=== PATIENT | female | born 1990 | race Caucasian/White ===

== ENCOUNTER → 2017-08-25 | Outpatient (CLI) | payer MEDICAID | LOC: HPND 08:05 | PROVIDERS: ATTEND Obstetrics & Gynecology | DX: O35.1XX0 Maternal care for (suspected) chromosomal abnormality in fetus, not applicable or unspecified (principal); O99.332 Smoking (tobacco) complicating pregnancy, second trimester; Z36.3 Encounter for antenatal screening for malformations | CPT/HCPCS: 76811 ==

== ENCOUNTER 2018-01-04 06:11 | Inpatient (IN) ==
--- NOTE | 2018-01-04 07:36 | P.HPOB ---
History of Present Illness Primary Care Physician: UNKNOWN Dr. Ignacio Erazo Chief Complaint: Contractions History of Present Illness: This patient is 27-year-old white female at 40weeks today [facility] records are available. She presents complaining of contractions that are painful began just after midnight. She denies bleeding or rupture membranes. Baby is active, NST is reactive she is sang every 3 minutes with discomfort. Weeks Gestation:: 40 Para: 3 : 4 Review of Systems All other systems reviewed negative except as stated in HPI PMFSH - Surgical History Surgical History: Surgical History (Last Updated 01/04/18 @ 07:36 by Inocente Barrientos MD) H/O tubal ligation - Social History I have reviewed the patient's Social History: Yes - Tobacco History Smoking Status: Never smoker - Alcohol History How Often Do You Have a Drink Containing Alcohol: Never - Substance Use History Substance History: No History of Abuse - Travel History History of Recent Travel: No Recent Travel in the [facility] Within the Last 8 Weeks: No Recent Travel Out of the Country Within the Last 8 Weeks: No Exam Vital signs: Vital Signs 01/04/18 07:00 Temperature 98.5 F Respiratory Rate 20 Narrative: GENERAL: Well-nourished, well-developed patient. SKIN: Warm and dry. HEAD: Normocephalic and atraumatic. EYES: No scleral icterus. No injection or drainage. ENT: No nasal drainage noted. Mucous membranes pink. Airway patent. NECK: Supple, trachea midline. No JVD. CARDIOVASCULAR: Regular rate and rhythm without murmurs, gallops, or rubs. RESPIRATORY: Breath sounds equal bilaterally. No accessory muscle use. BREASTS: Bilateral exam showed no masses , no retractions, no nipple discharge. ABDOMEN/GI: Abdomen soft, non-tender, bowel sounds present, no rebound, no guarding Gravid to [-40] weeks size Fundal Height: [40-] GENITOURINARY: External Genitalia: intact and normal in appearance BUS glands: [-] Cervix: [-post] Dilatation: [6-] Effacement: [80-] Station: [-3] Presentation: [vtx-] Membranes: [intact ] Uterine Contractions: [q 3 min-] FHT's: Category: [1-] Baseline: [-144] Reactive: [R-] Variability: [mod-] Decels: [0-] EXTREMITIES: No cyanosis or edema. BACK: Nontender without obvious deformity. No CVA tenderness. NEUROLOGICAL: Awake and alert. Motor and sensory grossly within normal limits. Five out of 5 muscle strength in all muscle groups. Normal speech. Results - Labs Group B Strep: Negative Caprini VTE Risk Assessment Caprini VTE Risk Assessment: No/Low Risk (score <= 1) Caprini Risk Assessment Model: Point Value = 1 Point Value = 2 Point Value = 3 Point Value = 5 Age 41-60 Minor surgery BMI > 25 kg/m2 Swollen legs Varicose veins or History of unexplained or recurrent spontaneous Oral contraceptives or hormone replacement Sepsis (< 1 month) Serious lung disease, including pneumonia (< 1 month) Abnormal pulmonary function Acute myocardial infarction Congestive heart failure (< 1 month) History of inflammatory bowel disease Medical patient at bed rest Age 61-74 Arthroscopic surgery Major open surgery (> 45 min) Laparoscopic surgery (> 45 min) Malignancy Confined to bed (> 72 hours) Immobilizing plaster cast Central venous access Age >= 75 History of VTE Family history of VTE Factor V Leiden Prothrombin [id number] Lupus anticoagulant Anticardiolipin antibodies Elevated serum homocysteine Heparin-induced thrombocytopenia Other congenital or acquired thrombophilia Stroke (< 1 month) Elective arthroplasty Hip, pelvis, or leg fracture Acute spinal cord injury (< 1 month) Prophylaxis Regimen: Total Risk Factor Score Risk Level Prophylaxis Regimen 0-1 Low Early ambulation 2 Moderate Order ONE of the following: *Sequential Compression Device (SCD) *Heparin 5000 units SQ BID 3-4 Higher Order ONE of the following medications: *Heparin 5000 units SQ TID *Enoxaparin/Lovenox 40 mg SQ daily (WT < 150 kg, CrCl > 30 mL/min) *Enoxaparin/Lovenox 30 mg SQ daily (WT < 150 kg, CrCl > 10-29 mL/min) *Enoxaparin/Lovenox 30 mg SQ BID (WT < 150 kg, CrCl > 30 mL/min) AND/OR *Sequential Compression Device (SCD) 5 or more Highest Order ONE of the following medications: *Heparin 5000 units SQ TID (Preferred with Epidurals) *Enoxaparin/Lovenox 40 mg SQ daily (WT < 150 kg, CrCl > 30 mL/min) *Enoxaparin/Lovenox 30 mg SQ daily (WT < 150 kg, CrCl > 10-29 mL/min) *Enoxaparin/Lovenox 30 mg SQ BID (WT < 150 kg, CrCl > 30 mL/min) AND *Sequential Compression Device (SCD) Assessment and Plan - Diagnosis (1) Uterine contractions during Code(s): O62.2 - Other uterine inertia Status: Acute (2) 40 weeks gestation of Code(s): Z3A.40 - 40 weeks gestation of Status: Acute - Plan This multiparous patient now at 40 weeks presents in labor, cervix 6/80/-3. heart rate tracing is reactive and contractions noted. Plan is admission to the hospital, augment labor as needed, anticipate vaginal delivery
[2018-01-04] MEDS ORDERED: Oxytocin 30 Units/500ml Premix 30 UNITS/500 ML BAG IV.SIG ONE (07:38)
[2018-01-04] MEDS ORDERED: Naloxone Inj 0.4 MG/ML Vial IV.PUSH PRN ×2 (07:38→15:26)
[2018-01-04] MEDS ORDERED: Sod Chloride 0.9% Inj 1,000 ML IV.CONT PRN (07:38)
[2018-01-04] MEDS ORDERED: Sodium Chlor 0.9% Inj 500 ML IV.SIG PRN (07:38)
[2018-01-04] MEDS ORDERED: fentaNYL Citrate Inj 100 MCG/2 ML Ampul IV.PUSH PRN ×2 (07:38)
[2018-01-04] MEDS ORDERED: Citric Acid/Sodium Citrate Liq 30 ML UDC PO SCH (07:45)
[2018-01-04 08:06] LABS: Baso # (Auto) 0.1 th/mm3 (0.0-0.2); Baso % (Auto) 0.5 % (0.0-2.0); Eos # (Auto) 0.2 th/mm3 (0.0-0.4); Eos % (Auto) 1.4 % (0.0-4.0); Hematocrit 32.5 % (35.0-46.0); Hemoglobin 11.9 gm/dL (11.6-15.3); Lymph # (Auto) 2.6 th/mm3 (1.0-4.8); Lymph % (Auto) 17.9 % (9.0-44.0); Mean Corpuscular Hemoglobin 35.8 pg (27.0-34.0); Mean Corpuscular Volume 97.3 fL (80.0-100.0); Mean Platelet Volume 8.3 fL (7.0-11.0); Mono # (Auto) 1.1 th/mm3 (0.0-0.9); Mono % (Auto) 7.4 % (0.0-8.0); Neut # (Auto) 10.6 th/mm3 (1.8-7.7); Neut % (Auto) 72.8 % (16.0-70.0); Platelet Count 226 th/mm3 (150-450); Red Blood Count 3.34 mil/mm3 (4.00-5.30); Red Cell Distribution Width 13.5 % (11.6-17.2); White Blood Count 14.5 th/mm3 (4.0-11.0)
[2018-01-04 08:08] LABS: Mean Corpuscular HGB Conc 36.8 % (32.0-36.0)
[2018-01-04] MEDS ORDERED: fentaNYL 2MCG-Bupiv 0.125% Epi 150 ML EPIDURAL ONE (08:10)
[2018-01-04] MEDS ORDERED: Lidocaaine 1.5%/Epinephrine 1:200,000 PF Inj 5 ML Amp ONE (08:29)
[2018-01-04] MEDS ORDERED: Lidocaine PF 1% Inj 5 ML Vial ONE (08:29)
[2018-01-04 08:54] LABS: Lymphocytes 16 % (9-44); Monocytes 9 % (0-8); Platelet Estimate Normal (Normal); Platelet Morphology Normal (Normal); Promyelocyte 1 % (0-0)
[2018-01-04] MEDS ORDERED: fentaNYL Citrate Inj 100 MCG/2 ML Ampul EPIDURAL ONE (09:12)
[2018-01-04] MEDS ORDERED: fentaNYL 2MCG-Bupiv 0.125% Epi 150 ML EPIDURAL PRN ×2 (09:12→09:37)
[2018-01-04 09:16] LABS: Bilirubin,Urine Negative (Negative); Clarity,Urine Cloudy (Clear); Color,Urine Yellow (Yellw/Straw); Glucose,Urine (UA) Negative (Negative); Leukocyte Esterase,Urine Large (Negative); Nitrite,Urine Negative (Negative)
[2018-01-04 09:49] LABS: Specific Gravity,Urine 1.008 (1.002-1.035)
[2018-01-04 09:50] LABS: Bacteria,Urine Few /hpf
[2018-01-04 10:03] LABS: Amphetamine Urine With Conf Neg (Neg); Benzodiazepine Urine With Conf Neg (Neg)
[2018-01-04] MEDS ORDERED: miSOPROStol 200 MCG Tablet PO ONE (14:22)
--- NOTE | 2018-01-04 14:22 | P.OBDELI ---
Additional Information: Weeks Gestation: 40 weeks 0 days Anesthesia: Epidural Presentation: Vertex, OA Nuchal Cord: None Shoulder Dystocia: None Delayed Cord Clampin seconds Placenta: Intact, three-vessel cord Episiotomy: None Laceration: None Repair: None Estimated Blood Loss: 50 cc Delivery Time: 1410 Delivery Date: 01/04/18 : Female (1 min): 8 (5 min): 8 Supervised by: Dr. Bradford
[2018-01-04] MEDS ORDERED: miSOPROStol 200 MCG Tablet ONE (14:28)
[2018-01-04] MEDS ORDERED: Oxytocin 30 Units/500ml Premix 30 UNITS/500 ML BAG IV.CONT PRN (15:26)
[2018-01-04] MEDS ORDERED: Witch Hazel 50%/Glyderin 12.5% 40 Pad Jar RECTAL PRN (15:26)
[2018-01-04] MEDS ORDERED: Bisacodyl 10 MG Supp RECTAL PRN (15:26)
[2018-01-04] MEDS ORDERED: Benzocaine 20% Top Spray 60 ML Can TOPICAL PRN (15:26)
[2018-01-04] MEDS ORDERED: Measles/Mumps/Rubella Vaccine Inj 0.5 ML Vial SQ ONE (16:00)
[2018-01-04] MEDS ORDERED: Diphtheria/Tetanus/Pertussis Vaccine Inj 0.5 ML Syringe IM ONE (16:00)
--- NOTE | 2018-01-04 19:08 | P.OBGPN ---
Postop day 0. Patient complaining of leg pain. Patient seen complaining of pain in her feet when she walks since the beginning of the . However she is concerned about the possibility of a blood clot. Patient seen and examined vital signs are stable she is able to ambulate without difficulty. On examination no erythema no edema no localized areas of warmth. Negative Homans. There is some tenderness in the plantar fascia as well as the Achilles of the affected area-patient advised to follow-up with podiatry outpatient
[2018-01-04] MEDS ORDERED: Zolpidem Tartrate 5 MG Tablet PO PRN (21:00)
[2018-01-04] MEDS: Acetaminophen 325 MG Tablet PO PRN (22:48)
[2018-01-04] MEDS: Senna/Docusate Sodium 8.6/50 MG Tablet PO SCH (22:51)
[2018-01-05] MEDS: Acetaminophen 325 MG Tablet PO PRN ×4 (02:54→19:47)
--- NOTE | 2018-01-05 08:22 | P.PNOB ---
Subjective Post day: 1 Interval history: day # 1 Afebrile with stable vitals overnight. Decreased lochia. Denies dysuria. No breast pain. Appetite good. No nausea or vomiting. Ambulating well. Denies calf pain or shortness of breath. She did have prior complaints of ankle and groin pain that was short-lived and have since resolved. Otherwise, she is doing well this morning and has no other complaints. Objective Vital Signs/I&O: Vital Signs 01/04/18 08:49 01/04/18 08:58 01/04/18 09:15 Temperature 98.0 F Pulse Rate 71 70 93 H Respiratory Rate 18 18 Blood Pressure 120/69 118/60 118/57 L 01/04/18 09:55 01/04/18 10:55 01/04/18 11:00 Temperature 98.1 F Pulse Rate 65 67 69 Respiratory Rate 18 Blood Pressure 120/59 L 77/26 L 122/53 L 01/04/18 11:10 01/04/18 11:35 01/04/18 12:01 Temperature Pulse Rate 65 69 75 Respiratory Rate Blood Pressure 116/58 L 133/67 124/56 L 01/04/18 12:31 01/04/18 14:37 01/04/18 14:57 Temperature Pulse Rate 99 H 63 59 L Respiratory Rate 18 20 Blood Pressure 106/30 L 112/58 L 121/89 01/04/18 15:02 01/04/18 16:01 Temperature Pulse Rate 60 68 Respiratory Rate Blood Pressure 100/57 L 102/54 L Intake & Output 01/04/18 01/05/18 01/05/18 18:59 06:59 18:59 Intake Total 1999 Balance 1999 Weight 88 kg Intake: IV 1999 LR 1000 mL Inj 1,000 ML @ 125 1000 / 1000 mls/hr IV.CONT .Q8H [facility] Rx#: [id number] LR 1000 mL Inj 1,000 ML @ 3000 1000 / 1000 mls/hr IV.SIG UNSCH PRN Rx#: [id number] Other: Weight On Admission 88 kg Result Diagrams: 01/04/18 07:35 Objective Remarks: General: Alert, well appearing, in no acute distress Skin: Warm and dry HEENT: Atraumatic. Moist mucus membranes Cardiac: Regular rate and rhythm without murmur Pulmonary: No increased work of breathing. Clear to auscultation bilaterally with good air movement. Abdominal: Non-tender. + Bowel sounds. uterus firm and below the umbilicus Extremities: 2+ pedal pulses, no edema, no calf tenderness Medications and IVs: Active Medications Acetaminophen (Tylenol) 650 mg PO Q4H PRN PRN Reason: PAIN SCALE 1 TO 2 Last Admin: 01/05/18 07:35 Dose: 650 mg Al Hydroxide/Mg Hydroxide (Milk Of Magnesia Liq) 30 ml PO Q12H PRN PRN Reason: Mild Constipation Benzocaine (Americaine 20% Top [place]) 1 spray TOPICAL Q4H PRN PRN Reason: For Perineum Discomfort Bisacodyl (Dulcolax Supp) 10 mg RECTAL DAILY PRN PRN Reason: SEVERE CONSITIPATION Citric Acid/Sodium Citrate (Sodium Citrate/Citric Acid Liq) 30 ml PO ACCOUNTS RECEIVABLE PROCESSOR [facility] Stop: 01/08/18 07:44 Ephedrine Sulfate (Ephedrine/Ns Syringe) 10 mg IV.PUSH UNSCH PRN PRN Reason: SEE LABEL COMMENTS Stop: 01/05/18 09:12 Fentanyl Citrate (Fentanyl Inj) 50 mcg IV.PUSH Q1H PRN PRN Reason: Pain Scale 3 - 5 Fentanyl Citrate (Fentanyl Inj) 100 mcg IV.PUSH Q1H PRN PRN Reason: PAIN SCALE 6 TO 10 Lactated Ringer's (Lr 1000 Ml Inj) 1,000 mls @ 3,000 mls/hr IV.SIG UNSCH PRN PRN Reason: compromise or epidural Last Infusion: 01/04/18 08:33 Dose: Infused Lactated Ringer's (Lr 1000 Ml Inj) 1,000 mls @ 125 mls/hr IV.CONT .Q8H [facility] Last Admin: 01/04/18 23:32 Dose: Not Given Sodium Chloride (Ns Inj) 500 mls @ 1,000 mls/hr IV.SIG UNSCH PRN PRN Reason: SEE LABEL COMMENTS Sodium Chloride (Ns Inj) 1,000 mls @ 100 mls/hr IV.CONT .Q10H PRN PRN Reason: SEE LABEL COMMENTS Fentanyl/Bupivacaine/Sodium Chlor (Fentanyl 2 Mcg-Bupiv 0.125% Epi) 150 mls @ 12 mls/hr EPIDURAL PRN PRN PRN Reason: for Labor Pain Oxytocin (Pitocin 30 Units/Ns 500 Ml Premix) 30 units in 500 mls @ 100 mls/hr IV.CONT UNSCH PRN PRN Reason: Heavy bleeding Ibuprofen (Motrin) 800 mg PO Q8H PRN PRN Reason: For Cramping Last Admin: 01/05/18 02:53 Dose: 800 mg Lidocaine HCl (Xylocaine 1% Inj) 0.1 ml I-DERMAL PRN PRN PRN Reason: For IV start Stop: 01/07/18 07:37 Lidocaine HCl (Xylocaine 1% Inj) 10 ml INFILTRATN PRN PRN PRN Reason: For episiotomy repair Stop: 01/06/18 07:37 Mineral Oil (Muri-Lube Oil) 10 ml TOPICAL PRN PRN PRN Reason: PRN perineal massage Miscellaneous Information (Misc Information) 1 each OTHER UNSCH PRN PRN Reason: SEE LABEL COMMENTS Stop: 01/05/18 09:12 Naloxone HCl (Narcan Inj) 0.1 mg IV.PUSH Q2M PRN PRN Reason: for opiate reversal Naloxone HCl (Narcan Inj) 0.1 mg IV.PUSH Q2M PRN PRN Reason: for opiate reversal Ondansetron HCl (Zofran Odt) 4 mg PO Q6H PRN PRN Reason: NAUSEA OR VOMITING Senna/Docusate Sodium (Gauri-Colace) 1 tab PO BID [facility] Last Admin: 01/04/18 22:51 Dose: Not Given Sennosides (Senokot) 17.2 mg PO Q12H PRN PRN Reason: Moderate Constipation Sodium Chloride (Ns Flush) 2 ml IV.FLUSH BID [facility] Last Admin: 01/04/18 23:31 Dose: Not Given Sodium Chloride (Ns Flush) 2 ml IV.FLUSH PRN PRN PRN Reason: FLUSH AFTER USING IV ACCESS Witch Enedina/Glycerin (Tucks Pads) 1 applicatio RECTAL QID PRN PRN Reason: HEMORRHOIDS Zolpidem Tartrate (Ambien) 5 mg PO HS PRN PRN Reason: SLEEP Assessment and Plan - Diagnosis (1) (normal spontaneous vaginal delivery) Code(s): O80 - Encounter for full-term uncomplicated delivery Status: Acute - Plan 27 year old female who is PPD# 1 s/p vaginal delivery -Continue routine care. -Motrin /APAP as needed for pain. -Encouraged OOB. Advised pelvic rest for 6 wks. - control: Plans on repeat tubal. Was advised on other nonsurgical options. -Anticipate DC home later today or tomorrow Care was discussed with: Dr. Bradford
[2018-01-05] MEDS: Senna/Docusate Sodium 8.6/50 MG Tablet PO SCH ×2 (15:31→22:17)
[2018-01-06] MEDS: Acetaminophen 325 MG Tablet PO PRN ×2 (02:05→11:52)
--- NOTE | 2018-01-06 07:29 | P.PNOB ---
Subjective Post day: 2 Interval history: Patient's pain is well-controlled. Patient reports eating and drinking without any nausea or vomiting. Patient reports minimal bleeding. Patient has passed gas but no bowel movements. Patient is walking without lower extremity pain or shortness of breath. Objective Vital Signs/I&O: Vital Signs 01/05/18 08:00 01/05/18 20:00 Temperature 97.6 F 98.0 F Pulse Rate 50 L 55 L Respiratory Rate 20 18 Blood Pressure 112/70 115/69 Result Diagrams: 01/04/18 07:35 Objective Remarks: GENERAL: Well-nourished, well-developed patient. CARDIOVASCULAR: Regular rate and rhythm without murmurs, gallops, or rubs. RESPIRATORY: Breath sounds equal bilaterally. No accessory muscle use. ABDOMEN/GI: Abdomen soft, non-tender. Fundus: Firm, non-tender at umbilicus. GENITOURINARY: Light to moderate bleeding. EXTREMITIES: No cyanosis or edema, non-tender, without signs of DVT. Medications and IVs: Active Medications Acetaminophen (Tylenol) 650 mg PO Q4H PRN PRN Reason: PAIN SCALE 1 TO 2 Last Admin: 01/06/18 02:05 Dose: 650 mg Al Hydroxide/Mg Hydroxide (Milk Of Magnesia Liq) 30 ml PO Q12H PRN PRN Reason: Mild Constipation Benzocaine (Americaine 20% Top [place]) 1 spray TOPICAL Q4H PRN PRN Reason: For Perineum Discomfort Bisacodyl (Dulcolax Supp) 10 mg RECTAL DAILY PRN PRN Reason: SEVERE CONSITIPATION Citric Acid/Sodium Citrate (Sodium Citrate/Citric Acid Liq) 30 ml PO PROCESSING LEAD [facility] Stop: 01/08/18 07:44 Fentanyl Citrate (Fentanyl Inj) 50 mcg IV.PUSH Q1H PRN PRN Reason: Pain Scale 3 - 5 Fentanyl Citrate (Fentanyl Inj) 100 mcg IV.PUSH Q1H PRN PRN Reason: PAIN SCALE 6 TO 10 Lactated Ringer's (Lr 1000 Ml Inj) 1,000 mls @ 3,000 mls/hr IV.SIG UNSCH PRN PRN Reason: compromise or epidural Last Infusion: 01/04/18 08:33 Dose: Infused Lactated Ringer's (Lr 1000 Ml Inj) 1,000 mls @ 125 mls/hr IV.CONT .Q8H [facility] Last Admin: 01/04/18 23:32 Dose: Not Given Sodium Chloride (Ns Inj) 500 mls @ 1,000 mls/hr IV.SIG UNSCH PRN PRN Reason: SEE LABEL COMMENTS Sodium Chloride (Ns Inj) 1,000 mls @ 100 mls/hr IV.CONT .Q10H PRN PRN Reason: SEE LABEL COMMENTS Fentanyl/Bupivacaine/Sodium Chlor (Fentanyl 2 Mcg-Bupiv 0.125% Epi) 150 mls @ 12 mls/hr EPIDURAL PRN PRN PRN Reason: for Labor Pain Oxytocin (Pitocin 30 Units/Ns 500 Ml Premix) 30 units in 500 mls @ 100 mls/hr IV.CONT UNSCH PRN PRN Reason: Heavy bleeding Ibuprofen (Motrin) 800 mg PO Q8H PRN PRN Reason: For Cramping Last Admin: 01/06/18 04:57 Dose: 800 mg Lidocaine HCl (Xylocaine 1% Inj) 0.1 ml I-DERMAL PRN PRN PRN Reason: For IV start Stop: 01/07/18 07:37 Lidocaine HCl (Xylocaine 1% Inj) 10 ml INFILTRATN PRN PRN PRN Reason: For episiotomy repair Stop: 01/06/18 07:37 Mineral Oil (Muri-Lube Oil) 10 ml TOPICAL PRN PRN PRN Reason: PRN perineal massage Naloxone HCl (Narcan Inj) 0.1 mg IV.PUSH Q2M PRN PRN Reason: for opiate reversal Naloxone HCl (Narcan Inj) 0.1 mg IV.PUSH Q2M PRN PRN Reason: for opiate reversal Ondansetron HCl (Zofran Odt) 4 mg PO Q6H PRN PRN Reason: NAUSEA OR VOMITING Senna/Docusate Sodium (Gauri-Colace) 1 tab PO BID [facility] Last Admin: 01/05/18 22:17 Dose: Not Given Sennosides (Senokot) 17.2 mg PO Q12H PRN PRN Reason: Moderate Constipation Sodium Chloride (Ns Flush) 2 ml IV.FLUSH BID [facility] Last Admin: 01/05/18 22:16 Dose: Not Given Sodium Chloride (Ns Flush) 2 ml IV.FLUSH PRN PRN PRN Reason: FLUSH AFTER USING IV ACCESS Witch Enedina/Glycerin (Tucks Pads) 1 applicatio RECTAL QID PRN PRN Reason: HEMORRHOIDS Zolpidem Tartrate (Ambien) 5 mg PO HS PRN PRN Reason: SLEEP Assessment and Plan - Plan 27 year old female who is PPD# 2 s/p vaginal delivery -Continue routine care. -Motrin /APAP as needed for pain. -Encouraged OOB. Advised pelvic rest for 6 wks. - control: Plans on repeat tubal. Was advised on other nonsurgical options. -Anticipate DC home today
[2018-01-06] MEDS: Senna/Docusate Sodium 8.6/50 MG Tablet PO SCH (09:11)
== END 2018-01-06 11:56 | disposition home or self-care (01) ==
LOC: HOBED 06:11 → H2E 07:50 → H1EA 16:27
PROVIDERS: ADMIT Obstetrics & Gynecology Maternal & Fetal Medicine; ATTEND Obstetrics & Gynecology Maternal & Fetal Medicine